=== PATIENT | male | born 1965 | race Caucasian/White ===

== ENCOUNTER 2019-06-04 11:03 | Emergency (ER) | payer MEDICAID ==
[~2019-06-04] VITALS: Ht 167.6 cm; Wt 72.0 kg
[~2019-06-04 11:03] MED LIST: GABA-531 PO; TRAM50TA4 PO
[2019-06-04] MEDS ORDERED: LIDOCAINE 1%/EPI 1:200,000/PF 30 ML VIAL INJ ONE (12:45)
[2019-06-04] MEDS: CEPHALEXIN MONOHYDRATE 500 MG CAPSULE PO ONE (12:55)
[2019-06-04] MEDS: SULFAMETHOX/TRIMETH DS 800-160 MG/TABLET PO ONE (12:56)
[2019-06-04] MEDS: PERTUSS(ACELL),DIPH,TET VAC/PF 0.5 ML VIAL IM ONE (12:56)
[2019-06-04] MEDS: POVIDONE-IODINE 10% 15 ML SOLUTION UD TP ONE (13:08)
[2019-06-04] MEDS: LIDOCAINE 1%/EPI 1:200,000/PF 10 ML VIAL INJ ONE (13:08)
[2019-06-04] MEDS: SODIUM CHLORIDE 0.9% 1,000 ML IV ONE (14:33)
[2019-06-04 15:25] LABS: BASOPHILS % (AUTO) 0.8 % (0.0-2.0); HEMATOCRIT 27.5 % (41-53); HEMOGLOBIN 8.3 g/dL (13.5-17.5); LYMPHOCYTES # (AUTO) 1.2 K/uL (1.0-4.8); LYMPHOCYTES % (AUTO) 21.5 % (22.0-44.0); MEAN CORPUSCULAR HEMOGLOBIN 18.8 pg (26.0-34.0); MEAN CORPUSCULAR VOLUME 63 fL (80-100); MONOCYTES # (AUTO) 0.4 K/uL (0.1-1.0); MONOCYTES % (AUTO) 7.6 % (2.0-9.0); NEUTROPHILS # (AUTO) 3.7 K/uL (1.8-7.7); NEUTROPHILS % (AUTO) 65.1 % (40.0-70.0); PLATELET COUNT (AUTO) 444 K/uL (150-450); RED BLOOD CELL COUNT(AUTO) 4.39 MIL/uL (4.50-5.90); RED CELL DISTRIBUTION WIDTH 17.4 % (11.5-14.5)
[2019-06-04 15:38] LABS: ANION GAP 9 mmol/L (8-16); CARBON DIOXIDE 25 mmol/L (22-29); CHLORIDE 106 mmol/L (98-107); CREATININE 0.76 mg/dL (0.60-1.30); GLOMERULAR FILTR. RATE CALC > 60 mL/min (>60); GLUCOSE,RANDOM 79 mg/dL (70-110); POTASSIUM 3.7 mmol/L (3.5-5.1); SODIUM SERUM 140 mmol/L (136-145); UREA NITROGEN, BLOOD 22 mg/dL (7-18)
[2019-06-04 15:47] LABS: LACTIC ACID 0.6 mmol/L (0.4-2.0)
[2019-06-04 16:00] VITALS: BP 101/59
== END 2019-06-04 16:36 | disposition home or self-care (01) ==
LOC: EMS 11:08
DX: L03.114 Cellulitis of left upper limb (principal); L03.113 Cellulitis of right upper limb; L02.414 Cutaneous abscess of left upper limb; L02.413 Cutaneous abscess of right upper limb; F17.210 Nicotine dependence, cigarettes, uncomplicated; F14.90 Cocaine use, unspecified, uncomplicated; F11.90 Opioid use, unspecified, uncomplicated
CPT/HCPCS: 36415; 80048; 83605; 85025; 90471; 90715; 99283; J3490; J7030

== ENCOUNTER 2023-03-19 15:08 | Emergency (ER) | payer MEDICAID ==
[~2023-03-19] VITALS: Ht 167.6 cm; Wt 64.4 kg
[2023-03-19] MEDS ORDERED: PERTUSS(ACELL),DIPH,TET VAC/PF 0.5 ML SYRINGE IM. ONE (19:15)
[2023-03-19] MEDS ORDERED: SODIUM CHLORIDE 0.9% 250 ML IRRIG SOLUTION BOTTLE IRRIG ONE (19:15)
[2023-03-19 20:23] LABS: BASOPHILS % (AUTO) 0.5 % (0.0-2.0); EOSINOPHILS % (AUTO) 6.6 % (1.0-6.0); HEMATOCRIT 34.2 % (41-53); HEMOGLOBIN 10.7 g/dL (13.5-17.5); LYMPHOCYTES # (AUTO) 1.2 K/uL (1.0-4.8); LYMPHOCYTES % (AUTO) 13.5 % (22.0-44.0); MEAN CORPUSCULAR HEMOGLOBIN 22.2 pg (26.0-34.0); MEAN CORPUSCULAR HGB CONC 31.3 G/dL (31.0-37.0); MEAN CORPUSCULAR VOLUME 71 fL (80-100); MONOCYTES # (AUTO) 0.6 K/uL (0.1-1.0); MONOCYTES % (AUTO) 6.5 % (2.0-9.0); NEUTROPHILS # (AUTO) 6.6 K/uL (1.8-7.7); NEUTROPHILS % (AUTO) 72.9 % (40.0-70.0); RED BLOOD CELL COUNT(AUTO) 4.83 MIL/uL (4.50-5.90); RED CELL DISTRIBUTION WIDTH 15.7 % (11.5-14.5)
[2023-03-19 20:25] LABS: ANION GAP 8 mmol/L (8-16); CALCIUM, TOTAL 8.7 mg/dL (8.8-10.5); CARBON DIOXIDE 28 mmol/L (22-29); CHLORIDE 99 mmol/L (98-107); CREATININE 0.93 mg/dL (0.60-1.30); GLOMERULAR FILTR. RATE CALC > 60 mL/min (>60); GLUCOSE,RANDOM 95 mg/dL (70-110); POTASSIUM 4.2 mmol/L (3.5-5.1); SODIUM SERUM 135 mmol/L (136-145)
[2023-03-19 20:31] LABS: ALKALINE PHOSPHATASE 100 U/L (46-116); ASPARTATE AMINOTRANSFERASE 19 U/L (15-37); BILIRUBIN,TOTAL 0.2 mg/dL (0.1-1.0); TOTAL PROTEIN, SERUM 8.3 g/dL (6.4-8.2)
[2023-03-19 20:32] LABS: ACETAMINOPHEN < 2 mcg/mL (10-30)
[2023-03-19 20:40] LABS: ALANINE AMINOTRANSFERASE 9 U/L (12-78)
[2023-03-19 20:42] LABS: PLATELET COUNT (AUTO) 329 K/uL (150-450)
[2023-03-19 20:54] LABS: SALICYLATE 1.7 mg/dL (2.8-20.0)
[2023-03-19] MEDS ORDERED: CeFAZolin 1 GM/DEXTROSE 50 ML IV ONE (21:15)
[2023-03-19 22:39] VITALS: BP 116/68
[2023-03-19] MEDS ORDERED: IBUP-1492 PO (22:50)
[2023-03-19] MEDS ORDERED: CEPH-558 PO (22:50)
== END 2023-03-19 23:07 | disposition home or self-care (01) ==
LOC: EMS 15:10
DX: S02.2XXA Fracture of nasal bones, initial encounter for closed fracture (principal); S00.81XA Abrasion of other part of head, initial encounter; F19.10 Other psychoactive substance abuse, uncomplicated; F17.210 Nicotine dependence, cigarettes, uncomplicated; F14.90 Cocaine use, unspecified, uncomplicated; Z98.890 Other specified postprocedural states; W01.0XXA Fall on same level from slipping, tripping and stumbling without subsequent striking against object, initial encounter; Y93.89 Activity, other specified; Y92.22 Religious institution as the place of occurrence of the external cause; Y99.8 Other external cause status
CPT/HCPCS: 99285; 70450; 80053; 82140; 85025; 36415; 70486; 72125; 90715; 93005; 90471; 96372; G0480; J0690; G0481

== ENCOUNTER 2023-04-14 16:32 | Emergency (ER) | payer MEDICAID ==
[~2023-04-14] VITALS: Ht 165.1 cm; Wt 70.5 kg
[~2023-04-14 16:32] MED LIST changes: +CEPH-558 PO; -GABA-531 PO; +IBUP-1492 PO; -TRAM50TA4 PO
[2023-04-14 16:40] VITALS: TEMP 98.2
[2023-04-14] MEDS ORDERED: IBUP-1492 PO (17:04)
[2023-04-14] MEDS ORDERED: CEPH-558 PO (17:04)
[2023-04-14 17:25] VITALS: BP 110/62; PULSE 80; RESP 18
== END 2023-04-14 17:37 | disposition home or self-care (01) ==
LOC: EMS 16:33
DX: S90.821A Blister (nonthermal), right foot, initial encounter (principal); K75.9 Inflammatory liver disease, unspecified; F17.210 Nicotine dependence, cigarettes, uncomplicated; F14.90 Cocaine use, unspecified, uncomplicated; X58.XXXA Exposure to other specified factors, initial encounter; Y93.89 Activity, other specified; Y92.89 Other specified places as the place of occurrence of the external cause; Y99.8 Other external cause status
CPT/HCPCS: 82948; 99283